=== PATIENT | male | born 1960 | race Caucasian/White ===

== ENCOUNTER → 2018-06-02 | Outpatient (CLI) | payer OTHER ==
--- NOTE | 2018-06-02 15:52 | MR ---
EXAMINATION TYPE: MR lumbar spine wo con DATE OF EXAM: 06/02/2018 COMPARISON: 10/30/2015 HISTORY: Low back pain CONTRAST: 0 mL intravenous . TECHNIQUE: Multiplanar, multisequence images of the lumbar spine were acquired. FINDINGS: Cord terminates at the L1 level. Vertebral body alignment is straightened in the sagittal plane. L5-S1: Broad-based disc bulge has mild anterior thecal sac compression. No AP spinal canal stenosis i s present. There is severe right and severe left foraminal stenosis. Small subligamentous disc extens ion is present superiorly with mild anterior thecal sac compression. L4-L5: There is a central disc herniation with moderate anterior thecal sac compression. Small amount of subligamentous disc extension may be present superiorly. There is increased signal along the infe rior disc at L4-5 which can be compatible with an annular tear. No AP spinal canal stenosis is presen t. There is severe bilateral foraminal stenosis, greater on the right. L3-L4: Broad-based disc bulge has mild anterior thecal sac compression. Some mild central focal bulgi ng may extend into the subligamentous region posterior to L4. No spinal canal stenosis is present. Mi ld right foraminal narrowing is present L2-L3: There is a left paracentral subligamentous disc herniation with mild anterior thecal sac compr ession. No stenosis is present. Some residual disc bulge is anterior thecal sac flattening. No spinal canal stenosis or neural foraminal stenosis is present L1-L2: No significant disc bulge or disc herniation. No spinal canal stenosis. No foraminal stenosi s. T12-L1: No significant disc bulge or disc herniation. No spinal canal stenosis. No foraminal stenos is. IMPRESSION: 1. Severe foraminal narrowing L5-S1 and L4-5 bilaterally 2. Annular tear L4-5, present previously. 3. Central disc herniation with subligamentous disc extension causing moderate anterior thecal sac co mpression at L4-5. No AP stenosis is present. 4. Broad-based disc bulging may have subligamentous central disc extension at L3-4. No stenosis is pr esent
== END | disposition home or self-care (01) ==
LOC: RADMRIMAIN 12:24
PROVIDERS: ATTEND Neurological Surgery
DX: M99.73 Connective tissue and disc stenosis of intervertebral foramina of lumbar region (principal); M51.26 Other intervertebral disc displacement, lumbar region
CPT/HCPCS: 72148